=== PATIENT | male | born 1970 | race African-American/Black ===

== ENCOUNTER 2017-04-05 13:51 | Emergency (ER) | payer OTHER, SELFPAY ==
[~2017-04-05] VITALS: Ht 157.5 cm; Wt 65.8 kg
[~2017-04-05 13:51] MED LIST: No Historical Meds
[2017-04-05] MEDS ORDERED: LIDOCAINE 1% MDV 20ML VIAL SC ONE (14:45)
[2017-04-05 15:26] VITALS: BP 114/65
== END 2017-04-05 15:42 | disposition home or self-care (01) ==
LOC: M ED 14:40
DX: S01.312A Laceration without foreign body of left ear, initial encounter (principal); W01.198A Fall on same level from slipping, tripping and stumbling with subsequent striking against other object, initial encounter; Y92.89 Other specified places as the place of occurrence of the external cause; Y93.89 Activity, other specified; Y99.8 Other external cause status; Z88.0 Allergy status to penicillin; F17.210 Nicotine dependence, cigarettes, uncomplicated

== ENCOUNTER 2017-04-17 08:52 | Emergency (ER) | payer OTHER, SELFPAY ==
[~2017-04-17] VITALS: Ht 157.5 cm; Wt 66.7 kg
[2017-04-17 08:52] VITALS: BP 116/64
== END 2017-04-17 09:51 | disposition home or self-care (01) ==
LOC: M ED 09:41
DX: Z48.02 Encounter for removal of sutures (principal)